=== PATIENT | female | born 1985 | race Caucasian/White ===

== ENCOUNTER 2017-01-27 17:45 | Emergency (ER) | payer MEDICARE | END 2017-01-27 19:14 | disposition home or self-care (01) | LOC: ER 17:45 | DX: N76.0 Acute vaginitis (principal); R30.0 Dysuria; R10.9 Unspecified abdominal pain; F17.210 Nicotine dependence, cigarettes, uncomplicated; Z79.899 Other long term (current) drug therapy; Z88.5 Allergy status to narcotic agent; Z88.6 Allergy status to analgesic agent; Z91.041 Radiographic dye allergy status ==